=== PATIENT | female | born 1960 | race Caucasian/White ===

== ENCOUNTER → 2018-06-09 | Outpatient (CLI) | payer OTHER ==
[~2018-06-09] MED LIST: ADV250/50 INH; ALBU8.5H12 IH; ESCI20TA38 PO; IMITREX; LEVO1TAB48 PO; MOMR NS
--- NOTE | 2018-06-10 08:19 | RADIOLOGY IMAGING REPORT ---
FACILITY: [facility] - [place], [place] PATIENT NAME: BULL POPE : [id number] MR: [id number] V: [id number] EXAM DATE: [id number] ORDERING PHYSICIAN: ROSARIO BOYER TECHNOLOGIST: Shasta Ochoa PROCEDURE:BILATERAL DIGITAL SCREENING MAMMOGRAM WITH CAD ASSISTED INTERPRETATION & 3D TOMOSYNTHESIS COMPARISON:Prior mammograms 12/30/16, 11/28/15, 08/23/14, 05/25/13, 05/19/12. INDICATIONS:screening FINDINGS: There are scattered areas of fibroglandular density throughout the breasts. Most of the parenchymal pattern has remained stable allowing for difference in mammographic technique & patient positioning. There is a focal asymmetry just above mid nipple line Right MLO view in the middle depth for which Spot compression view is recommended. DIAGNOSTIC CATEGORY 0--INCOMPLETE: NEED ADDITIONAL IMAGING EVALUATION. RECOMMENDATIONS: ADDITIONAL MAMMOGRAPHIC VIEWS REQUIRED: RIGHT BREAST. IMPRESSION: BIRADS 0: Incomplete. Additional views of the Right breast recommended as described. Dictated by: Yue Boucher M.D. on 06/09/2018 at 15:10 Transcribed by: AUDREY on 06/09/2018 at 15:22 Approved by: Yue Boucher M.D. on 06/10/2018 at 8:18 [facility]
== END ==
LOC: MAMO 01:21
PROVIDERS: ATTEND Family Medicine
DX: R92.8 Other abnormal and inconclusive findings on diagnostic imaging of breast (principal); Z80.3 Family history of malignant neoplasm of breast
CPT/HCPCS: 77063; 77067

== ENCOUNTER → 2018-06-23 | Outpatient (CLI) | payer OTHER ==
--- NOTE | 2018-06-24 14:13 | RADIOLOGY IMAGING REPORT ---
FACILITY: [facility] PATIENT NAME: BULL POPE : [id number] MR: [id number] V: [id number] EXAM DATE: ORDERING PHYSICIAN: ROSARIO BOYER TECHNOLOGIST: Shasta Ochoa PROCEDURE:RIGHT DIGITAL MAMMOGRAM DIAGNOSTIC WITH CAD ASSISTED INTERPRETATION & 3D TOMOSYNTHESIS REASON FOR STUDY: Further evaluation FAMILY HISTORY OF BREAST CANCER: Maternal Aunt & maternal cousins BREAST PROCEDURES/TREATMENTS: None COMPARISON STUDIES: 06/09/18, 12/30/16, 11/28/15, 08/23/14, 05/25/13, 05/19/12 MAMMOGRAM VIEWS OBTAINED: 2D & 3D spot compression view Right MLO BREAST DENSITY: There are scattered areas of fibroglandular density throughout the Right breast MAMMOGRAM FINDINGS: The small asymmetry noted just above the mid nipple line on the previous Right MLO view appears compressible & apparently represented a summation shadow. DIAGNOSTIC CATEGORY 2--BENIGN FINDING. ASSESSMENT: BIRADS 2: Benign finding. RECOMMENDATIONS: ROUTINE MAMMOGRAM AND CLINICAL EVALUATION. Dictated by: Yue Boucher M.D. on 06/24/2018 at 8:31 Transcribed by: SILVA on 06/24/2018 at 13:55 Approved by: Yue Boucher M.D. on 06/24/2018 at 14:12 [facility]
== END ==
LOC: MAMO 00:14
PROVIDERS: ATTEND Family Medicine
DX: R92.8 Other abnormal and inconclusive findings on diagnostic imaging of breast (principal)
CPT/HCPCS: 77061; 77065

== ENCOUNTER → 2018-07-18 | Outpatient (REF) ==
[2018-07-18 06:51] LABS: LDL CHOLESTEROL 109 mg/dl
== END ==
DX: Z02.9 Encounter for administrative examinations, unspecified (principal)

== ENCOUNTER → 2018-09-14 | Outpatient (CLI) | payer OTHER | LOC: LAB 12:18 | PROVIDERS: ATTEND Family Medicine | DX: E03.4 Atrophy of thyroid (acquired) (principal) | CPT/HCPCS: 36415; 84443 ==